=== PATIENT | male | born 1980 | race African-American/Black ===

== ENCOUNTER 2018-06-15 08:44 | Emergency (ER) | payer OTHER ==
[~2018-06-15] VITALS: Ht 177.8 cm; Wt 113.4 kg
[2018-06-15 08:50] VITALS: BP_SYST 142
--- NOTE | 2018-06-15 08:57 | NUR ---
Patient to ER bed 5 to gown for evaluation. Side rails up. Report given to KARMA FUENTES.
--- NOTE | 2018-06-15 09:13 | NUR ---
Patient is awake, alert, and oriented x4. He is complaining of sharp abdominal pain since last night and has vomitted 4 times. Patient denies previous medical history or surgery. Current pain level is 6/10.
--- NOTE | 2018-06-15 09:17 | NUR ---
ER Dr. Starr at bedside examining patient.
[2018-06-15 09:40] VITALS: BP_SYST 138
--- NOTE | 2018-06-15 09:40 | NUR ---
Patient given written and verbal discharge instructions and verbalizes understanding. ER MD discussed with patient the results and treatment provided. Patient in stable condition. ID arm band removed. Rx of lomotil, zofran given. Patient educated on pain management and to follow up with PMD. Pain Scale 0/10. Opportunity for questions provided and answered. Medication side effect fact sheet provided.
== END 2018-06-15 09:40 | disposition home or self-care (01) ==
LOC: SED 08:44
DX: K52.9 Noninfective gastroenteritis and colitis, unspecified (principal)
CPT/HCPCS: 99283